=== PATIENT | female | born 1995 | race Caucasian/White ===

== ENCOUNTER 2016-06-08 18:12 | Emergency (ER) | payer OTHER ==
[~2016-06-08] VITALS: Ht 160 cm; Wt 110.0 kg
[~2016-06-08 18:12] MED LIST: MTR600X PO; PRENTAB26 PO
[2016-06-08 18:23] VITALS: TEMP 36.8; Ht 160 cm; Wt 110.0 kg
[2016-06-08 20:55] VITALS: BP 120/82; PULSE 85; O2SAT 97
--- NOTE | 2016-06-09 00:28 | EMERGENCY ROOM VISIT NOTE ---
History First contact with patient: 19:16 Chief Complaint: OTHER COMPLAINT Stated Complaint: PERIOD 2 WKS LATE,INTENSE CRAMPS History of Present Illness The patient is a 20 year old female who presents to the Emergency Room with complaints of "pretty intense pelvic cramping". The patient reports that she has had the symptoms for the past 48 hours. The patient reports that she is 2 weeks late with her menstruation. OB history is . She reports that with her last urgency, her urine was negative. She required a quantitative beta hCG to confirm . She reports that her symptoms are very similar to her prior . She denies any urinary symptoms, constipation or diarrhea. The patient reports that the pain is colicky in nature, lasting a few seconds. She will get this crampy sensation 3-4 times an hour. She has not noticed any vaginal bleeding. She has had thick mucous drainage. She denies any concerns for STI. The patient rates her discomfort a 4 out of 10. The pain does not radiate into the back. Review of Systems 10 system review was performed and was negative except for pertinent positives and negatives as indicated in history of present illness Past Medical/Surgical History Medical Problems: (1) ASTHMA, UNSPECIFIED, W (ACUTE) EXACERBATION (2) Decreased movement (3) DEPRESSIVE DISORDER NEC (4) HISTORY OF TOBACCO USE (5) Post-dates Family History FH: cancer FH: diabetes mellitus FH: heart disease FH: hypertension No pertinent family history Social History Smoking Status: Current Every Day Smoker Alcohol Use: none Marital Status: single Housing Status: other Occupation Status: employed, student Current/Historical Medications No Active Prescriptions or Reported Meds Allergies Coded Allergies: Lamotrigine (Verified Allergy, Mild, RASH, 06/08/16) Physical Exam Vital Signs Date Time Temp Pulse Resp B/P Pulse Ox O2 Delivery O2 Flow Rate FiO2 06/08/16 20:55 85 20 120/82 97 06/08/16 18:23 36.8 81 18 120/79 99 Room Air Physical Exam CONSTITUTIONAL: Healthy and well nourished. Alert and oriented X 3 with positive affect. She does not appear in any acute distress. HEENT: Normocephalic, atraumatic. Pupils equal, round and reactive. NECK: Full active range of motion without discomfort. RESPIRATORY: Clear to auscultation bilaterally with no wheezing, crackles, rhonchi or stridor. CARDIOVASCULAR: Regular rate and rhythm with no murmurs, rubs or gallops. GASTROINTESTINAL: Bowel sounds present in all quadrants. She has minimal suprapubic tenderness to palpation. Negative McBurney's point tenderness. Negative CVA tenderness. Negative Rovsing sign. Negative psoas/obturator sign. Negative heel tap. MUSCULOSKELETAL: Full range of motion of all joints without discomfort. INTEGUMENTARY: No rash or other significant dermatologic conditions noted. NEUROLOGIC: No focal neurologic deficits noted. Medical Decision & Procedures Laboratory Results Test 06/08/16 19:38 Human Chorionic Gonadotropin, Quant < 1 mIU/mL Quantitative beta hCG is undetectable ED Course Patient history and physical exam were performed. Nurse's notes were reviewed. Cause of the patient's prior history of false-negative urine test, a quantitative beta hCG was ordered and was undetectable. I expressed my concern for other intrapelvic etiologies. The patient reported that she needed to leave, and refused additional labwork or pelvic ultrasound. The patient was instructed to follow-up with her MANAGER TELEMETRY or family doctor for recheck in the next 2-3 days if symptoms persist. She is welcome to return to the emergency department for further workup as well. She was encouraged to alternate ibuprofen and Tylenol as needed for pain. The patient voiced understanding of all discharge instructions, and rated her pain a 2 out of 10 at the time of discharge. Medical Decision Patient presented to the emergency department with complaint of pelvic cramping. She is also late with menses. Her quantitative beta hCG is less than 1, therefore the patient is not at this time. Other differentials considered included ovarian cyst, torsion, PID, vaginitis, dysmenorrhea, abscess and GI etiology. I do not suspect appendicitis or diverticulitis. The patient refused any further workup as she needed to leave. Impression Primary Impression: Pelvic pain Departure Information Prescriptions No Active Prescriptions or Reported Meds Referrals No Doctor, Assigned (PCP) Patient Instructions A Signature Page, My [facility] [place]
== END 2016-06-08 20:56 | disposition home or self-care (01) ==
LOC: C.EDB 18:13 → C.EDD 20:56
DX: R10.2 Pelvic and perineal pain (principal); J45.901 Unspecified asthma with (acute) exacerbation; F32.9 Major depressive disorder, single episode, unspecified; F17.210 Nicotine dependence, cigarettes, uncomplicated; Z83.3 Family history of diabetes mellitus; Z82.49 Family history of ischemic heart disease and other diseases of the circulatory system

== ENCOUNTER 2021-05-18 06:27 | Inpatient (IN) ==
[2021-05-18] MEDS ORDERED: OXYTOCIN 30 UNITS/500 ML BAG IV PRN ×3 (07:42→16:14)
[2021-05-18 08:12] LABS: Hematocrit (blood only) 37.3 % (37-47); Hemoglobin 12.8 g/dL (12.0-16.0); Mean Corpuscular Hemoglobin 31.6 pg (25-34); Mean Corpuscular Hgb Conc 34.3 g/dL (32-36); Mean Corpuscular Volume 92.1 fL (80-100); Mean Platelet Volume 10.8 fL (7.4-10.4); Platelet Count 204 K/uL (130-400); RDW Coefficient of Variation 13.8 % (11.5-14.5); RDW Standard Deviation 46.4 fL (36.4-46.3); Red Blood Count 4.05 M/uL (4.2-5.4); White Blood Count 12.64 K/uL (4.8-10.8)
--- NOTE | 2021-05-18 09:53 | History & Physical Report ---
Date of Service May 18, 2021 Assessment & Plan (1) Post-dates : (2) Spontaneous rupture of amniotic membranes: Plan: 25 yo ith uncertain dates (40-42 wks) presenting with SROM with no contractions VSS Afebrile, see HPI FHR reassuring GBS negative Plan to admit monitor, labs, UDS, oxytocin augmentation and anticipate (3) Uncertain dates, antepartum: (4) Late care: Admission and Anticipated Discharge Date Admission Date: May 18, 2021 History of Present Illness Primary Care Provider: NO PCP 25 yo female presenting with LOF at 5 am and confirmed by [facility]. She transferred care from [facility] to [facility] at 30 wks. Poor historian and her dates are not certain. 42 weeks by 2nd trimester US, 15-16 wks and LMP of 3 ( done at [facility]) and 40 wks by 3rd trimester US here at [facility].( She told her LMP as 08/11) Mild irregular back pain No ctxs/ VB +FM's Her has been complicated by 1) Late care and transfer of care with uncertain dates 2) Class III obesity 3) Depression, BPD, was on Lamictal and stopped 4) h/o macrosomic baby in 2017, 9 lb 13 oz 5) H/O Marijuana use per records, denies Allergies Allergy/AdvReac Type Severity Reaction Status Date / Time lamotrigine Allergy Mild RASH Verified 05/18/21 07:09 Home Medications Medication Instructions Recorded Confirmed Type prenat.vits,bossman,[id number] 1 tab PO QAM 09/26/20 05/18/21 History ferrous sulfate 325 mg (65 mg 325 mg PO DAILY 05/12/21 05/18/21 History iron) tablet (iron) Patient History Medical History Injury of left little finger No pertinent past medical history Surgical History No pertinent past surgical history Social History (Updated 05/12/21 @ 17:50 by Constanza Cavazos, MARTÍNEZ) Smoking Status: Former smoker Hx Alcohol Use: No Hx Substance Use: No Preferred Language: Yakut Communication Ability: Effective Rent And Miscellaneous Remittance Clerk Required: No Beliefs That Will Affect Care: None marital status: Single Current Living Situation: Significant Other current occupational status: unemployed Feels Safe at Home: Yes OB History FT in 2017, 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 h/o STD, no chlam/ GC/ HSV Review of Systems as per Subjective / HPI Physical Exam Constitutional: well developed, well nourished and + obese NAD Gastrointestinal (Abdomen): normal bowel sounds, soft, nontender, no hepatosplenomegaly (gravid) Inspection/Auscultation: abdomen normal to inspection and + abdomen distended (Gravid) Genitourinary: normal external appearance OB Exam Abdomen: + vertex Manual OB Exam: + cervical dilation 5 cm, + cervical effacement 30% and + station high OB Exam Monitor Tracing: + external uterine monitor used and + category I [facility] + Results & Data ([place]) Vital Signs (Past 12 Hours) Vital Signs Temp Pulse Resp BP 05/18/21 07:15 20 05/18/21 06:45 37.0 C 18 05/18/21 06:37 95 H 138/81 Laboratory Results Lab Results 05/18/21 05/18/21 05/18/21 Range/Units 07:47 07:53 08:00 WBC (4.8-10.8) K/uL RBC (4.2-5.4) M/uL Hgb (12.0-16.0) g/dL Hct (37-47) % MCV (80-100) fL MCH (25-34) pg MCHC (32-36) g/dL RDW Std Deviation (36.4-46.3) fL RDW Coeff of [place] (11.5-14.5) % Plt Count (130-400) K/uL MPV (7.4-10.4) fL Amniotic Protein POS SARS-CoV-2, RNA, NAAT NEGATIVE (NEGATIVE) Blood Type A Positive Antibody Screen NEGATIVE Draw and Hold Cancelled 05/18/21 Range/Units 08:00 WBC 12.64 H (4.8-10.8) K/uL RBC 4.05 L (4.2-5.4) M/uL Hgb 12.8 (12.0-16.0) g/dL Hct 37.3 (37-47) % MCV 92.1 (80-100) fL MCH 31.6 (25-34) pg MCHC 34.3 (32-36) g/dL RDW Std Deviation 46.4 H (36.4-46.3) fL RDW Coeff of [place] 13.8 (11.5-14.5) % Plt Count 204 (130-400) K/uL MPV 10.8 H (7.4-10.4) fL Amniotic Protein SARS-CoV-2, RNA, NAAT (NEGATIVE) Blood Type Antibody Screen Draw and Hold Code Status & VTE Plan VTE Prophylaxis Plan VTE Prophylaxis will be ordered: No
[2021-05-18] MEDS: LACTATED RINGER'S 1,000 ML IV PRN ×2 (10:55→12:41)
[2021-05-18 11:27] LABS: Amphetamines+Metham, Urine Neg (Neg); Barbiturates, Urine Neg (Neg); Benzodiazepine, Urine Neg (Neg); Cocaine, Urine Neg (Neg); MDMA (Ecstacy), Urine Neg (Neg); Methadone, Urine Neg (Neg); Opiate, Urine Neg (Neg); Phencyclidine, Urine Neg (Neg)
[2021-05-18] MEDS ORDERED: SODIUM CHLORIDE 0.9% INJ 10 ML VIAL ONE (11:54)
[2021-05-18] MEDS ORDERED: NALBUPHINE HCL INJ 10 MG/ML AMP IV PRN (11:54)
[2021-05-18] MEDS ORDERED: diphenhydrAMINE 50 MG/ML VIAL IV PRN (11:54)
[2021-05-18] MEDS ORDERED: ONDANSETRON INJ 2 MG/ML 2 ML VIAL IV PRN (11:54)
[2021-05-18] MEDS ORDERED: ePHEDrine sulfate 50 MG/ML AMP IV PRN (11:54)
[2021-05-18] MEDS ORDERED: NALOXONE HCL 1 MG in SODIUM CHLORIDE 0.9% 1000ML 1,000 ML IV PRN (11:54)
[2021-05-18] MEDS ORDERED: fentaNYL citrate 100 MCG/2 ML VIAL ONE (11:54)
[2021-05-18] MEDS ORDERED: fentaNYL 2MCG/ML ROPIVACAINE 1.25MG/ML 100 ML BAG EPI PRN (11:54)
[2021-05-18] MEDS ORDERED: ePHEDrine sulfate 50 MG/ML AMP ONE (11:54)
[2021-05-18] MEDS ORDERED: BUPIVACAINE 0.25% 30 ML VIAL ONE (11:54)
[2021-05-18] MEDS ORDERED: NALOXONE HCL 0.4 MG/1 ML VIAL/CARP IV PRN (11:54)
[2021-05-18] MEDS ORDERED: fentaNYL 2MCG/ML ROPIVACAINE 1.25MG/ML 100 ML BAG EPI ONE (11:55)
--- NOTE | 2021-05-18 11:55 | Anesthesiology Consultation ---
Date of Service May 18, 2021 Assessment & Plan (1) Encounter for pre-operative examination: Chart Review Chart Review: Patient NOT seen in Pre Admission Testing and Acceptable Risk for Labor Epidural Consults Requested none History Height/Weight Height: 5 ft 3 in Weight: 118.841 kg Allergies Allergy/AdvReac Type Severity Reaction Status Date / Time lamotrigine Allergy Mild RASH Verified 05/18/21 07:09 Medications Home Medications Medication Instructions Recorded Confirmed Last Taken prenat.vits,bossman,nwf-[id number] 1 tab PO QAM 09/26/20 05/18/21 05/17/21 ferrous sulfate 325 mg (65 mg 325 mg PO DAILY 05/12/21 05/18/21 05/17/21 iron) tablet (iron) Active Medications Generic Name Dose Route Start Last Admin Trade Name Freq PRN Reason Stop Dose Admin Lactated Ringer's 1,000 mls @ 150 mls/hr 05/18/21 07:42 05/18/21 11:44 Lr IV 05/20/21 07:41 999 mls/hr .Q6H40M PRN Infusion L&D Protocol Protocol Oxytocin 30 units in 500 mls @ 4 mls/hr 05/18/21 07:44 05/18/21 11:30 Pitocin IV 05/20/21 07:43 0.24 units/hr .Q24H PRN 4 mls/hr Labor Induction/Augmentation Titration Protocol 0.24 UNITS/HR Past Medical History Medical History (Updated 05/18/21 @ 11:55 by Deepak Corona MD) Encounter for pre-operative examination Injury of left little finger No pertinent past medical history Exercise / Class Metabolic Activity II 4-5 Yardwork/Stairs/Walk up hill Past Surgical History Surgical History No pertinent past surgical history Past Anesthesia History No Hx of Anesthesia Complications and No Family Hx of Anesthesia Complications History of PONV No Hx of PONV and No Hx of Motion Sickness Social History Smoking Status: Former smoker Hx Alcohol Use: No Hx Substance Use: No substance use type: does not use Physical Exam Vital Signs Last Vital Signs Temp 36.8 C 05/18/21 10:52 Pulse 69 05/18/21 12:13 Resp 20 05/18/21 11:30 BP 147/89 H 05/18/21 12:16 Pulse Ox 96 05/18/21 12:13 Testing Laboratory Results 05/18/21 08:00 Blood Type A Positive 05/18/21 08:00 Antibody Screen NEGATIVE 05/18/21 08:00
--- NOTE | 2021-05-18 14:47 | Obstetrical Progress Note ---
Date of Service May 18, 2021 Assessment & Plan Admission and Anticipated Discharge Date Admission Date: May 18, 2021 Subjective Received epidural and comfortable. Pitocin was started per protocol. heart rate category 1, Vaginal exam, cervix 6 to 7 cm, 70% effaced, bulging bag, head at -2 station but engaged. AROM, clear fluid was obtained. Continue to monitor closely and anticipate . Results & Data ([facility]) Vital Signs (Past 12 Hours) Vital Signs Temp Pulse Resp BP Pulse Ox 05/18/21 14:43 88 98 05/18/21 14:38 84 99 05/18/21 14:33 72 99 05/18/21 14:32 76 133/62 05/18/21 14:28 80 97 05/18/21 14:23 71 98 05/18/21 14:18 74 98 05/18/21 14:17 75 115/57 L 05/18/21 14:13 74 98 05/18/21 14:08 82 97 05/18/21 14:03 77 98 05/18/21 14:02 76 117/69 05/18/21 13:58 73 97 05/18/21 13:53 82 98 05/18/21 13:48 78 98 05/18/21 13:46 92 H 109/59 L 05/18/21 13:43 80 98 05/18/21 13:38 86 98 05/18/21 13:33 83 111/59 L 99 05/18/21 13:30 18 05/18/21 13:28 78 97 05/18/21 13:23 96 H 98 05/18/21 13:18 89 109/59 L 98 05/18/21 13:15 18 05/18/21 13:13 85 96 05/18/21 13:08 87 97 05/18/21 13:03 83 18 98 05/18/21 13:02 96 H 106/49 L 05/18/21 12:58 94 H 98 05/18/21 12:53 100 H 98 05/18/21 12:48 91 H 98 05/18/21 12:47 85 116/56 L 05/18/21 12:43 90 98 05/18/21 12:38 80 98 05/18/21 12:33 75 99 05/18/21 12:30 90 18 103/53 L 05/18/21 12:28 80 99 05/18/21 12:27 90 112/56 L 05/18/21 12:24 87 121/58 L 05/18/21 12:23 78 98 05/18/21 12:21 77 124/65 05/18/21 12:19 71 131/63 05/18/21 12:18 72 97 05/18/21 12:16 89 147/89 H 05/18/21 12:13 69 153/85 H 96 05/18/21 12:08 89 97 05/18/21 12:06 76 165/90 H 05/18/21 12:03 90 99 05/18/21 11:40 18 05/18/21 11:30 20 05/18/21 10:52 36.8 C 89 18 120/78 05/18/21 10:40 20 05/18/21 08:30 20 05/18/21 07:15 20 05/18/21 06:45 37.0 C 18 05/18/21 06:37 95 H 138/81
[2021-05-18] MEDS ORDERED: miSOPROStoL 200 MCG TAB ONE (16:12)
[2021-05-18] MEDS ORDERED: miSOPROStoL 200 MCG TAB PR ONE (16:14)
[2021-05-18] MEDS ORDERED: HYDROCORTISONE ACETATE 25 MG SUPP PR PRN (16:14)
[2021-05-18] MEDS ORDERED: SUPERCREAM 0.870% 15 GM JAR EXT PRN (16:14)
[2021-05-18] MEDS ORDERED: ACETAMINOPHEN 325 MG TAB PO PRN (16:14)
[2021-05-18] MEDS ORDERED: MEASLES, MUMPS & RUBELLA VIRUS VIAL SQ ONE (16:14)
[2021-05-18] MEDS ORDERED: DIPHTHERIA/TETANUS/PERTUSSIS 0.5 ML SYR/VIAL IM ONE (16:14)
[2021-05-18] MEDS ORDERED: bisacodyL 10 MG SUPP PR PRN (16:14)
[2021-05-18] MEDS ORDERED: oxyCODONE/ACETAMINOPHEN 5mg/325mg TAB PO PRN (16:14)
[2021-05-18] MEDS ORDERED: BENZOCAINE 20% AER SPR 82.5 GM CAN EXT PRN (16:14)
--- NOTE | 2021-05-18 16:19 | Delivery Summary ---
Vaginal Delivery Summary Date of Service May 18, 2021 Vaginal Delivery Summary Patient was found to be fully dilated and desire to push she pushed. She pushed through only 2 contractions and delivered the head without difficulty. Shoulders were delivered with minimal traction, baby was handed off to the mother, where mouth and nose were suctioned and cord was clamped x2 and cut at 1 minute delay. Baby was vigorously moving and crying at that point. Vagina and perineum were checked for lacerations. There was a first-degree clitoral laceration left of the urethra. A rubber catheter were placed into the urethra to aid during repair. This laceration was repaired with 3-0 Vicryl on SH needle in a continuous fashion and excellent hemostasis was achieved. Rest of the vagina and perineum were intact. Placenta was found to be in the vagina, delivered spontaneously as intact and complete. Uterus was explored and found to be empty and cleaned of all clots and debris's. Mom and baby tolerated procedure well, sponge needle instrument count was correct x2. There was a viable male , delivered at 1556 PM, Apgars were 7/8 and weight is pending. No complications happened and I was present during whole procedure.
--- NOTE | 2021-05-18 16:51 | Anesthesia Procedure Note ---
Date of Service May 18, 2021 Anesthesia Post Epidural Note Vital Signs Vital Signs: Temp Pulse Resp BP Pulse Ox 37.2 C 67 18 121/57 L 97 05/18/21 14:30 05/18/21 16:46 05/18/21 15:30 05/18/21 16:46 05/18/21 15:58 Notes Mental Status: alert / awake / arousable and participated in evaluation Patient Amnestic to Procedure: No Nausea / Vomiting: adequately controlled Pain: adequately controlled Airway Patency, RR, SpO2: stable & adequate BP & HR: stable & adequate Hydration State: stable & adequate Neuraxial Anesthesia: was administered and sensory block is resolving Anesthetic Complications: no major complications apparent and Pt Satisfied with anesthetic care Epidural: Removed without complications and With tip intact
[2021-05-18] MEDS: DOCUSATE SODIUM 100 MG CAP PO SCH (21:15)
[2021-05-18] MEDS: IBUPROFEN 600 MG TAB PO PRN (23:37)
[2021-05-19] MEDS: IBUPROFEN 600 MG TAB PO PRN ×2 (03:34→08:18)
[2021-05-19] MEDS ORDERED: PRENATAL VITAMIN 1 TAB PO SCH (08:00)
[2021-05-19] MEDS ORDERED: FERROUS SULFATE 325 MG TAB PO SCH (08:00)
[2021-05-19] MEDS: DOCUSATE SODIUM 100 MG CAP PO SCH (08:18)
[2021-05-19 08:42] LABS: Hematocrit (blood only) 32.9 % (37-47); Hemoglobin 11.1 g/dL (12.0-16.0); Mean Corpuscular Hemoglobin 31.1 pg (25-34); Mean Corpuscular Hgb Conc 33.7 g/dL (32-36); Mean Corpuscular Volume 92.2 fL (80-100); Mean Platelet Volume 10.9 fL (7.4-10.4); Platelet Count 165 K/uL (130-400); RDW Coefficient of Variation 13.8 % (11.5-14.5); RDW Standard Deviation 46.3 fL (36.4-46.3); Red Blood Count 3.57 M/uL (4.2-5.4); White Blood Count 12.76 K/uL (4.8-10.8)
[2021-05-19] MEDS ORDERED: CALCIUM CARBONATE 500 MG CHEWABLE TAB PO PRN (09:28)
--- NOTE | 2021-05-19 10:22 | Obstetrical Progress Note ---
Date of Service May 19, 2021 Assessment & Plan (1) Normal course: Day #1 pt doing well wishes to be discharged home Subjective Ambulation: ambulating normally Voiding: no voiding problems Passing Gas:: Yes Diet Tolerance:: regular diet Lochia:: Small Feeding Type:: breast feeding Review of Systems All systems reviewed & are unremarkable except as noted in HPI & below Physical Exam Constitutional WD/WN, vitals as above well developed and well nourished Eyes PERRL, conjunctivae normal, anicteric sclerae Neck trachea midline, no thyromegaly Respiratory normal respiratory effort, lungs clear to auscultation Auscultation: no crackles, no rales and no wheezes Cardiovascular RRR, no murmur, no edema Gastrointestinal (Abdomen) normal bowel sounds, soft, nontender, no hepatosplenomegaly Uterus is below umbilicus Musculoskeletal no cyanosis or clubbing, extremities motor strength 5/5 Skin no rashes, warm and dry Neurologic patellar DTR's 2+ bilat, sensation intact Psychiatric A+Ox3, euthymic affect Genitourinary normal external appearance Results & Data ([facility]) Vital Signs (Past 12 Hours) Vital Signs Temp Pulse Resp BP Pulse Ox 05/19/21 07:55 36.6 C 55 L 18 105/69 97 05/19/21 03:35 36.6 C 64 20 114/73 05/18/21 23:50 37.1 C 73 20 149/90 H
[2021-05-19] MEDS ORDERED: bisacodyL 5 MG TABEC PO SCH (20:00)
[2021-05-20 13:21] LABS: Marijuana Quant, GCMS Urine 27 ng/mL (<5)
== END 2021-05-19 16:43 | disposition home or self-care (01) | DRG 807 ==
LOC: OPB 06:27 → 4S1 06:30 → 4S2 18:30

== ENCOUNTER 2022-08-04 16:01 | Inpatient (IN) ==
[2022-08-04] MEDS ORDERED: LIDOCAINE 1% LOCAL 20 ML VIAL INFIL PRN (16:05)
[2022-08-04] MEDS ORDERED: OXYTOCIN 30 UNITS/500 ML BAG IV PRN ×2 (16:05→17:41)
[2022-08-04 16:32] LABS: Hematocrit (blood only) 37.5 % (37.0-47.0); Hemoglobin 13.4 g/dl (12.0-16.0); Mean Corpuscular Hemoglobin 31.4 pg (25.0-34.0); Mean Corpuscular Hgb Conc 35.7 g/dL (32.0-36.0); Mean Corpuscular Volume 87.8 fL (80.0-100.0); Mean Platelet Volume 10.6 fL (9.4-12.4); Platelet Count 214 K/uL (130-400); RDW Coefficient of Variation 13.3 % (11.5-14.5); RDW Standard Deviation 42.4 fL (36.4-46.3); Red Blood Count 4.27 M/uL (4.20-5.40)
[2022-08-04] MEDS ORDERED: CALCIUM CARBONATE 500 MG CHEWABLE TAB PO PRN (17:12)
[2022-08-04] MEDS: LACTATED RINGER'S 1,000 ML IV PRN ×2 (18:02→22:26)
--- NOTE | 2022-08-04 18:33 | History & Physical Report ---
Date of Service August 04, 2022 Assessment & Plan Admission and Anticipated Discharge Date Admission Date: August 04, 2022 History of Present Illness Chief Complaint: induction of labor for BPP 2/8 Primary Care Provider: TUSHAR PCP 26 F P2002 at 39.2 weeks here from office due to BPP 2/8. She is GBS negative. Allergies Allergy/AdvReac Type Severity Reaction Status Date / Time lamotrigine Allergy Mild RASH Verified 08/04/22 18:22 Home Medications Medication Instructions Recorded Confirmed Type prenat.vits,bossman,[id number] 1 tab PO QAM 09/26/20 08/04/22 History Patient History Medical History Encounter for pre-operative examination Injury of left little finger No pertinent past medical history Surgical History No pertinent past surgical history Social History Smoking Status: Never smoker Tobacco Type: Cigarettes Hx Alcohol Use: No Hx Substance Use: Yes (in the past used thc) Preferred Language: Cymraes Communication Ability: Effective 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 Required: No Beliefs That Will Affect Care: None marital status: Single Current Living Situation: Significant Other current occupational status: unemployed How many Children do You have: 2 Other Information That Helps Us Care for You: No Feels Safe at Home: Yes Safety Concerns: Feels Safe At This Time Assistive Devices: None OB History x2 Review of Systems All systems reviewed & are unremarkable except as noted in HPI & below Physical Exam Constitutional: WD/WN, vitals as above Eyes: PERRL, conjunctivae normal, anicteric sclerae Respiratory: normal respiratory effort, lungs clear to auscultation Cardiovascular: Rate/Rhythm: regular rate and regular rhythm Gastrointestinal (Abdomen): Inspection/Auscultation: abdomen normal to inspection Musculoskeletal: Extremities: extremities normal to inspection Skin: no rashes, warm and dry Neurologic: patellar DTR's 2+ bilat, sensation intact Psychiatric: A+Ox3, euthymic affect Genitourinary: Manual OB Exam: + cervical dilation 3 cm, + cervical effacement 50% and + station -2 OB Exam Monitor Tracing: + external FHT monitor used, + external uterine monitor used, + category I and + normal FHT variability cervix is anterior/soft Results & Data ([facility]) Vital Signs (Past 12 Hours) Vital Signs Temp Pulse Resp BP 08/04/22 16:25 37.5 C 20 08/04/22 16:19 87 121/67 Code Status & VTE Plan VTE Prophylaxis Plan VTE Prophylaxis will be ordered: No
[2022-08-04] MEDS ORDERED: NALOXONE HCL 1 MG in SODIUM CHLORIDE 0.9% 1000ML 1,000 ML IV PRN (19:37)
[2022-08-04] MEDS ORDERED: BUPIVACAINE 0.25% 30 ML VIAL ONE (19:37)
[2022-08-04] MEDS ORDERED: diphenhydrAMINE 50 MG/ML VIAL IV PRN (19:37)
[2022-08-04] MEDS ORDERED: ePHEDrine sulfate 50 MG/ML AMP IV PRN (19:37)
[2022-08-04] MEDS ORDERED: SODIUM CHLORIDE 0.9% INJ 10 ML VIAL ONE (19:37)
[2022-08-04] MEDS ORDERED: fentaNYL citrate 100 MCG/2 ML VIAL ONE (19:37)
[2022-08-04] MEDS ORDERED: NALBUPHINE HCL INJ 10 MG/ML AMP IV PRN (19:37)
[2022-08-04] MEDS ORDERED: ePHEDrine sulfate 50 MG/ML AMP ONE (19:37)
[2022-08-04] MEDS ORDERED: fentaNYL 2MCG/ML ROPIVACAINE 1.25MG/ML 100 ML BAG EPI PRN (19:37)
[2022-08-04] MEDS ORDERED: LIDOCAINE 2%/EPINEPHRINE 1:200,000 20 ML SDV ONE (19:37)
[2022-08-04] MEDS ORDERED: NALOXONE HCL 0.4 MG/1 ML VIAL/CARP IV PRN (19:37)
--- NOTE | 2022-08-04 19:37 | Anesthesiology Consultation ---
Date of Service August 04, 2022 Assessment & Plan (1) Encounter for pre-operative examination: Chart Review Chart Review: Patient NOT seen in Pre Admission Testing and Acceptable Risk for Labor Epidural Consults Requested none History Height/Weight Height: 5 ft 4 in Weight: 127.006 kg Allergies Allergy/AdvReac Type Severity Reaction Status Date / Time lamotrigine Allergy Mild RASH Verified 08/04/22 18:22 Medications Home Medications Medication Instructions Recorded Confirmed Last Taken prenat.vits,bossman,[id number] 1 tab PO QAM 09/26/20 08/04/22 05/17/21 Active Medications Generic Name Dose Route Start Last Admin Trade Name Freq PRN Reason Stop Dose Admin Calcium Carbonate 1,500 mg 08/04/22 17:12 08/04/22 17:28 Calcium Carbonate 500 Mg Chewable Tab PO 09/03/22 17:11 1,500 mg Q2R PRN Administration Indigestion Lactated Ringer's 1,000 mls @ 125 mls/hr 08/04/22 16:05 08/04/22 18:02 Lr IV 08/06/22 16:04 125 mls/hr .Q8H PRN Administration L&D Protocol Protocol Oxytocin 30 units in 500 mls @ 5 mls/hr 08/04/22 17:41 08/04/22 19:05 Pitocin IV 08/06/22 17:40 0.3 units/hr .Q24H PRN 5 mls/hr Labor Induction/Augmentation Titration Protocol 0.3 UNITS/HR Past Medical History Medical History Encounter for pre-operative examination Injury of left little finger No pertinent past medical history Past Surgical History Surgical History No pertinent past surgical history Social History Smoking Status: Never smoker Hx Alcohol Use: No Hx Substance Use: Yes (in the past used thc) substance use type: does not use Physical Exam Vital Signs Last Vital Signs Temp 98.1 F 08/04/22 19:01 Pulse 74 08/04/22 19:01 Resp 18 08/04/22 19:01 BP 113/62 08/04/22 19:01 Testing Laboratory Results 08/04/22 16:19 Blood Type A Positive 08/04/22 16:19 Antibody Screen NEGATIVE 08/04/22 16:19
[2022-08-04] MEDS ORDERED: fentaNYL 2MCG/ML ROPIVACAINE 1.25MG/ML 100 ML BAG EPI ONE (19:38)
--- NOTE | 2022-08-04 20:33 | Labor Progress Brief Note ---
Date of Service August 04, 2022 Assessment & Plan Admission and Anticipated Discharge Date Admission Date: August 04, 2022 Physical Exam Genitourinary: Manual OB Exam: + cervical dilation 4 cm, + cervical effacement 80% and + station -2 OB Exam Monitor Tracing: + external FHT monitor used, + scalp electrode used, + category I and + normal FHT variability AROM with Amni-hook clear fluid. internal scalp lead applied Results & Data ([facility]) Vital Signs (Past 12 Hours) Vital Signs Temp Pulse Resp BP Pulse Ox 08/04/22 16:25 37.5 C 20 08/04/22 20:29 97 08/04/22 20:29 86 08/04/22 20:27 36.8 C 08/04/22 20:24 99 08/04/22 20:24 96 H 08/04/22 20:19 98 08/04/22 20:19 81 08/04/22 20:16 83 08/04/22 20:16 110/59 L 08/04/22 20:14 97 08/04/22 20:14 74 08/04/22 20:11 74 08/04/22 20:11 106/56 L 08/04/22 20:09 97 08/04/22 20:09 80 08/04/22 20:06 118 H 08/04/22 20:06 102/53 L 08/04/22 20:04 98 08/04/22 20:04 83 08/04/22 20:01 90 08/04/22 20:01 105/53 L 08/04/22 19:59 98 08/04/22 19:59 78 08/04/22 19:59 86 08/04/22 19:59 112/57 L 08/04/22 19:56 75 08/04/22 19:56 108/57 L 08/04/22 19:54 98 08/04/22 19:54 93 H 08/04/22 19:53 78 08/04/22 19:53 130/60 08/04/22 19:49 97 08/04/22 19:49 91 H 08/04/22 19:44 98 08/04/22 19:44 91 H 08/04/22 19:01 18 08/04/22 19:01 36.7 C 18 08/04/22 19:01 74 08/04/22 19:01 113/62 08/04/22 16:19 87 121/67
--- NOTE | 2022-08-05 00:31 | Delivery Summary ---
Vaginal Delivery Summary Date of Service August 05, 2022 Vaginal Delivery Summary Delivery Note live female KAREN with nuchal cord x1 reduced at delivery of head over intact perineum with delayed cord clamping. Apgars 8/9 weight pending. Cord blood obtained followed by spontaneous delivery of intact placenta with 3VC. No tears. EBL 100 ml. Final sponge and instrument count are correct. Mom and baby stable. Cord
[2022-08-05] MEDS ORDERED: OXYTOCIN 30 UNITS/500 ML BAG IV PRN (01:09)
[2022-08-05] MEDS ORDERED: ACETAMINOPHEN 325 MG TAB PO PRN (01:09)
[2022-08-05] MEDS ORDERED: HYDROCORTISONE ACETATE 25 MG SUPP PR PRN (01:09)
[2022-08-05] MEDS ORDERED: DIPHTHERIA/TETANUS/PERTUSSIS 0.5mL SYR/VIAL (Age 7+yrs) IM ONE (01:09)
[2022-08-05] MEDS ORDERED: bisacodyL 10 MG SUPP PR PRN (01:09)
[2022-08-05] MEDS ORDERED: BENZOCAINE 20% AER SPR 82.5 GM CAN EXT PRN (01:09)
[2022-08-05] MEDS ORDERED: NON-FORMULARY MEDICATION (Prenat.Vits,Cal,Min-Iron-Folic Tablet) PO SCH (09:00)
--- NOTE | 2022-08-05 09:09 | Anesthesia Procedure Note ---
Date of Service August 05, 2022 Anesthesia Post Epidural Note Vital Signs Vital Signs: Temp Pulse Resp BP Pulse Ox 37.0 C 93 H 18 105/57 L 93 08/05/22 02:45 08/05/22 02:45 08/05/22 02:45 08/05/22 02:45 08/05/22 00:20 Notes Mental Status: alert / awake / arousable and participated in evaluation Patient Amnestic to Procedure: No Nausea / Vomiting: adequately controlled Pain: adequately controlled Airway Patency, RR, SpO2: stable & adequate BP & HR: stable & adequate Hydration State: stable & adequate Neuraxial Anesthesia: was administered and sensory block resolved Anesthetic Complications: no major complications apparent and Pt Satisfied with anesthetic care Epidural: Removed without complications and With tip intact
[2022-08-05] MEDS: FERROUS SULFATE 325 MG TAB PO SCH (09:32)
[2022-08-05] MEDS: DOCUSATE SODIUM 100 MG CAP PO SCH ×2 (09:33→21:00)
[2022-08-05] MEDS: PRENATAL VITAMIN 1 TAB PO SCH (09:33)
[2022-08-05] MEDS: IBUPROFEN 600 MG TAB PO PRN ×2 (09:34→18:30)
[2022-08-06 06:39] LABS: Hematocrit (blood only) 35.2 % (37.0-47.0); Mean Corpuscular Hemoglobin 30.7 pg (25.0-34.0); Mean Corpuscular Hgb Conc 34.1 g/dL (32.0-36.0); Platelet Count 159 K/uL (130-400); RDW Coefficient of Variation 13.5 % (11.5-14.5); Red Blood Count 3.91 M/uL (4.20-5.40); White Blood Count 9.61 K/ul (4.8-10.8)
[2022-08-06] MEDS: PRENATAL VITAMIN 1 TAB PO SCH (09:18)
[2022-08-06] MEDS: DOCUSATE SODIUM 100 MG CAP PO SCH (09:18)
[2022-08-06] MEDS: FERROUS SULFATE 325 MG TAB PO SCH (09:18)
--- NOTE | 2022-08-06 10:37 | Obstetrical Progress Note ---
Date of Service August 06, 2022 Assessment & Plan (1) Normal course: PPD #1 pt doing well pt wishes to be discharged home today Results & Data ([facility]) Vital Signs (Past 12 Hours) Vital Signs Temp Pulse Resp BP Pulse Ox O2 Del Method 08/06/22 07:30 36.6 C 68 20 145/75 H 08/05/22 22:57 36.8 C 56 L 18 122/84 97 Room Air
[2022-08-06] MEDS ORDERED: bisacodyL 5 MG TABEC PO SCH (20:00)
== END 2022-08-06 13:30 | disposition home or self-care (01) | DRG 807 ==
LOC: 4S1 16:01 → 4E1 08-05 02:46

== ENCOUNTER 2024-04-15 07:57 | Inpatient (IN) ==
--- OUTSIDE RECORDS SUMMARY | 2024-04-15 09:00 | External Medical Summary | Summary of Care ---
Author Name Unknown Organization [facility] Address [address] [facility] [place] [address] Phone [phone] Care Team Providers Care Privacy Specialist Name Role Phone Mimi Nava Primary Care Provider Reason for Visit * Reason Comments Non Stress Test Encounter Details Date Type Department Care Team (Late st Contact Info) Description 04/10/2024 10:00 AM EST Office Visit Gynecology/Obstetric s [facility] [address] [facility] [place] [address] Mimi Nava CRNP [address] [place] [address] Jj, Non Stress Tests [facility] [address] [place] [address] High-risk in third trimester*; Obesity in , antepartum; Maternal varicella, non-immune Allergies Active Allergy Reactions Criticality Noted Date Comments Lamotrigine 07/13/2012 Rash and throat swelling documented as of this encounter (statuses as of 04/10/2024) Medications 28-0.8 MG Oral Tablet Take by mouth. Active documented as of this encounter (statuses as of 04/10/2024) Active Problems Problem Noted Date Diagnosed Date Food insecurity 11/06/2023 Overview: Per [facility] Protocol Maternal varicella, non-immune 10/12/2023 High-risk 10/10/2023 Obesity in , antepartum 10/10/2023 Overview (11/06/2023): Class 3 Early GTT (normal), baseline preE labs, growth q4 wks, weekly NSTs 34 wks, deliver by LYN Attention deficit disorder without hyperactivity 02/04/2008 Epistaxis Estimated Date of Delivery Comme nts Yes 04/20/2024 Based on last me nstrual period of 07/15/2023 documented as of this encounter (statuses as of 04/10/2024) Resolved Problems Problem Noted Date Diagnosed Date Resolved Date Health counseling 04/26/2022 09/19/2022 Overview (09/19/2022): Problem Action Taken Date entered Entered by Date resolved Need for baby supplies Breast pump form sent 06/17/2022 Aditi Lee RN 06/17/2022 Problem Action Taken Date entered Entered by Date resolved Current needs or questions Discussed NST Patient denies having any current needs or questions 06/29/2022 Kandice Rodriguez RN 06/29/2022 Problem Action Taken Date entered Entered by Date resolved Current needs or questions Patient denies having any current needs or questions 07/14/2022 Aditi Lee RN 07/14/22 Problem Action Taken Date entered Entered by Date resolved Current needs or questions Patient denies having any current needs or questions 07/15/2022 Aditi Lee RN 07/15/2022 Problem Action Taken Date entered Entered by Date resolved Current needs or questions Patient denies having any current needs or questions 07/27/2022 Aditi Lee RN 07/27/2022 Problem Action Taken Date entered Entered by Date resolved PP education given 09/19/2022 Aditi Lee RN 09/19/2022 Encounter for supervision of other normal , third trimester 01/20/2022 09/19/2022 Supervision of other normal 03/10/2021 08/05/2021 Overview (03/25/2021): CBC at 32w showing low foliate and B12, recommended supplementation History of delivery of macrosomal 03/10/2021 09/19/2022 Obesity in , antepartum 03/10/2021 07/27/2022 Overview (03/10/2021): Class II obesity (BMI 35-39.9) -Weight gain 11-20lbs -Nutrition consult -MFM anatomy scan, growth scan q4 weeks -Early GDM screening Depression complicating , antepartum 03/10/20 21 09/19/2022 Overview (03/10/2021): No meds Insufficient care 03/10/2021 0 09/19/2022 Overview (04/13/2021): Transferring care. Prior records received 04/13/2021 (35w) and sent to [facility]ann[facility]11/25/20: A+ bloodtype, negative antibody, hct-40.1, hgb- 13.7, pap WNL, rubella immune, RPR nonreactive, Hep BsAg nonreactive, Hep C ab nonreactive, chlamydia negative, gonorrhea negative Obesity, Class III, BMI 40-4 9.9 (morbid obesity) 02/27/2017 09/19/2022 Overview (01/20/2022): Early glucola Baseline preeclamptic labs Growth u/s every 4wk after 20wks Weekly NST after 34 weeks Consider anesthesia consult Delivery by EDC Encounter for supervision of normal first in second trimester 02/26/2015 09/15/2015 Overview (03/24/2021): Transfer[place] care at 13wks from [facility] [place] Release of record signed. 01/06/15:H/H=14.4/41.8, bxe=817, Hep B negative, Rubella immune, A+ bloodtype, negative antibodies, urine culture negative, chlamydia/gonnorhea negative, RPR nonreactive Lack of housing Care Management Oil Burner Journeyman 02/26/15 Hetal Skinner RN Unplanned 1st Offer Nurse Family Partnership 02/26/15 Hetal Skinner RN Nutrition Provided due date letter for pt to attend [facility] 02/26/2015 Hetal Skinner RN Problem Action Taken Date entered Entered by Date resolved Current needs or questions Patient denies having any current needs or questions 03/26/2015 Hetal Skinner RN Problem Action Taken Date entered Entered by Date resolved Nurse family partnership Pt seeing NFP- They have discussed with her the [place] project. Having a boy and starting to get things ready for this. 04/20/2015 Kandice Rodriguez RN Problem Action Taken Date entered Entered by Date resolved Current needs or questions Patient denies having any current needs or questions 05/18/2015 Hetal Skinner RN 05/18/15 Problem Action Taken Date entered Entered by Date resolved Current needs or questions Patient denies having any current needs or questions 06/08/2015 Kandice Rodriguez RN Problem Action Taken Date entered Entered by Date resolved Current needs or questions Patient denies having any current needs or questions 06/22/2015 Kandice Rodriguez RN Problem Action Taken Date entered Entered by Date resolved Lack of housing Moving into new housing. Will plan to get ready for baby once settled in 06/22/2015 Kandice Rodriguez RN Problem Action Taken Date entered Entered by Date resolved Current needs or questions Patient denies having any current needs or questions. Moving beginning of July. NFP coming in. 07/06/2015 Kandice Rodriguez RN Problem Action Taken Date entered Entered by Date resolved Current needs or questions Patient denies having any current needs or questions 08/11/2015 Kandice Rodriguez RN Problem Action Taken Date entered Entered by Date resolved Current needs or questions Patient denies having any current needs or questions 08/20/2015 Kandice Rodriguez RN Problem Action Taken Date entered Entered by Date resolved Current needs or questions Patient denies having any current needs or questions 08/27/2015 Hetal Skinner RN 08/27/15 Problem Action Taken Date entered Entered by Date resolved Current needs or questions Patient denies having any current needs or questions 08/31/2015 Akanksha Ascencio RN 08/31/15 Problem Action Taken Date entered Entered by Date resolved Induction scheduled 09/07/15 Reviewed induction instructions 09/03/2015 Akanksha Ascencio RN 09/03/15 Problem Action Taken Date entered Entered by Date resolved 32 week readiness page completed Due date letter faxed to [facility] 03/24/2021 Kandice Rodriguez RN 03/24/2021 documented as of this encounter (statuses as of 04/10/2024) Immunizations Name Administration Dates Next Due COVID-19, MRNA-LNP, PF, 30 M CG/0.3 mL, 12 YRS AND ABOVE, IM (PFIZER-Comirnaty) 07/27/2023 PPD 12/21/2022,11/28/2022 Seasonal Influenza Vac., MDV, IM, 0.5 mL (Fluzon e) 02/21/2013 TDAP (age 10 and older)(Boostrix) 06/16/2015 documented as of this encounter Social History Tobacco Use Types Packs/Day Years Used Date Smoking Tobacco: Former Cigarettes 0.3 4 Smokeless Tobacco: Never Alcohol Use Standard Drinks/Week Comments No 0 (1 standard drink = 0.6 oz pur e alcohol) Hunger Vital Sign Answer Date Recorded Within the past 12 months, y ou worried that your food would run out before you got the money to buy more. Often true 11/01/19 24 Within the past 12 months, t he food you bought just didn't last and you didn't have money to get more. Never true 11/01/2023 [place] Depression Scale Answer Date Recorded [place] Depression Scale Total 6 10/10/2023 The thought of harming myself has occurred to me . Never 10/10/2023 Childcare Answer Date Recorded Do you feel overwhelmed with taking care of a child, family member or friend? No 11/01/2023 Does your family need help f inding childcare? (Household - for ages 0-17 years) Not on file 11/01/2023 Clothing Answer Date Recorded Have you been unable to get clothing when it was really needed? No 11/01/2023 Is your family able to get c lothes or diapers when needed? (Household - for ages 0-17 years) Not on file 11/01/2023 Personal Safety Answer Date Recorded Do you feel unsafe or have concerns for your saf ety? No 11/01/2023 Do you have concerns for you r family's safety? (Household - for ages 0-17 years) Not on file 11/01/2023 Utilities Answer Date Recorded Do you have trouble paying y our heating, water, or electric bill? No 11/01/2023 Is your family able to pay t he heat, water, or electric bill? (Household - for ages 0-17 years) Not on file 11/01/2023 Does your family have access to good internet? (Household - for ages 0-17 years) Not on file 11/01/2023 Employment Status Answer Date Recorded Are you unemployed or without regular income? No 11/01/2023 Does the household have a re gular source of income? (Household - for ages 0-17 years) Not on file 11/01/2023 Social Connections Answer Date Recorded How often do you feel lonely or isolated from th ose around you? Never 11/01/2023 Financial Resource Strain Answer Date R ecorded Do you have any trouble payi ng for your medications, or do you think you might in the future? No 11/01/2023 Does your family have troubl e paying for medicine? (Household - for ages 0-17 years) Not on file 11/01/2023 Transportation Needs Answer Date Record ed READ ONLY Do you have troubl e getting a ride to medical visits or work? Never True 11/01/2023 Does your family have a hard time getting a ride to doctors visits? (Household - for ages 0-17 years) Not on file 11/01/2023 Has lack of transportation k ept you from medical appointments, meetings, work, or from getting things needed for daily living? Check all that apply. (Adult - for ages 18 years and over) Not on file 11/01/2023 Do you (or your family) have trouble finding or paying for a ride (transportation)? (Household - for ages 0-17 years) Not on file 11/01/2023 Housing Stability Answer Date Recorded Do you currently live in a s helter or have no steady place to sleep at night? No 11/01/2023 READ ONLY Do you think you a re at risk of becoming homeless? No 11/01/2023 Does your family worry about paying for your home or becoming homeless? (Household - for ages 0-17 years) Not on file 0 11/01/2023 Are you homeless or worried that you might be in the future? (Adult - for ages 18 years and over) Not on file Are you (or your family) zaire eless or worried that you might be in the future? (Household - for ages 0-17 years) Not on file Food Insecurity Answer Date Recorded Do you need food for this week? No 11/01/2023 Are you able to get enough f ood for your family? (Household - for ages 0-17 years) Not on file 11/01/2023 Does your family need food t his week? (Household - for ages 0-17 years) Not on file 11/01/2023 Do you always have enough fo od for your family? (Household - for ages 0-17 years) Not on file 11/01/2023 Estimated Date of Delivery Comme nts Yes 04/20/2024 Based on last me nstrual period of 07/15/2023 Sex and Gender Information Value Date Recorded Sex Assigned at Female 01/20/2022 2:29 PM EDT Legal Sex Female 5:37 AM EST Gender Identity Female 01/20/2022 2:29 PM EDT Sexual Orientation Bisexual 01/20/2022 2: 29 PM EDT documented as of this encounter Last Filed Vital Signs Vital Sign Reading Time Taken Comments Blood Pressure - - Pulse - - Temperature - - Respiratory Rate - - Oxygen Saturation - - Inhaled Oxygen Concentration - - Weight 131.9 kg (290 lb 11.2 oz) 04/10/2024 9:53 AM EST Height - - Body Mass Index 49.9 04/08/2024 4:31 PM EST documented in this encounter Progress Notes * Mimi Nava CRNP - 04/10/2024 10:12 AM EST 38w4d Growth u/s today, appropriate growth, CLAY 14cm. Baby is active. No contractions or bleeding. Pt had asked nurse for cervical check but then left immediately after NST was completed. Has IOL 04/15. ASSESSMENT assessment with Non-stress Test completed on 04/10/2024 at 38.4weeks gestation for indicationof obesity heart baseline: 140 bpm Variability: Moderate Decelerations: absent Accelerations: present Contractions: None NST start time: 1036 NST stop time: 1104 NST strip reviewed, interpreted, and approved by OB provider, DOREEN Garza . NST strip stored in clinic storage file * Maria A So CMA - 04/10/2024 9:53 AM EST 38w4d + contractions Requesting cervical check. States pants are consistently wet. Nitrazine positive in office 04/09/2024. L&D testing negative. documented in this encounter Plan of Treatment Upcoming Encounters Date Type Department Care Team (Late st Contact Info) Description 04/17/2024 10:00 AM EST Office Visit Gynecology/Obstetrics [facility] [address] [place] [id number] Mimi Nava CRNP [address] [place] [address] Becca Gardner Stress Tests [facility] [address] [place] [address] Health Maintenance Due Date Last Done Comments HPV (Gardasil) Vaccine (2 - 3-dose series) 07/29/2013 07/01/2013 (Done elsewhere) Hepatitis B Vaccine (2 of 3 - 3-dose series) 07/29/2013 07/01/2013 (Done elsewhere) Depression Screening 10/18/2016 10/19/2015 COVID-19 Vaccine (2 - season) 2024 07/27/2023, 07/27/2023 Influenza Vaccine (FLU shot) (#1) 2024 02/21/2013 Pap Smear 01/20/2025 01/20/2022 DTap/Tdap Vaccines (2 - Td or Tdap) 06/16/2025 06/16/2015 MENINGOCOCCAL (MENACTRA/MENVEO) Addressed 07/01/2013 (Done elsewhere) Overridden with the intention of not completing the topic Gonorrhea / Chlamydia Screen Discontinued 10/10/2023, 01/20/2022, 08/16/2016, Additional history exists Pneumococcal Vaccine: Pediatrics (0 to 5 Years) and At-Risk Patients (6 to 64 Years) Aged Out No longer eligible based on patient's age to complete this topic documented as of this encounter Medical Devices Not on filedocumented as of this encounter Visit Diagnoses Diagnosis High-risk in third trimester- Primary Obesity in , antepartum Obesity complicating , childbirth, or the puerperium, antepartum condition or complication Maternal varicella, non-immune Supervision of other high-risk documented in this encounter Care Teams Privacy Specialist Relationship Specialty Start Date End Date Mimi Nava CRNP [address] [place] [phone] PCP - General Nurse Practitioner 02/15/24 documented as of this encounter
--- OUTSIDE RECORDS SUMMARY | 2024-04-15 09:01 | External Medical Summary | Summary of Care ---
Author Name Unknown Organization [facility] Address [address] [place] [address] Phone [phone] Care Team Providers Care Tail Trimmer Name Role Phone Mimi Nava Primary Care Provider [phone] Reason for Visit * Reason Comments Return Visit Encounter Details Date Type Department Care Team (Late st Contact Info) Description 04/08/2024 4:00 PM EST Office Visit Gynecology/Obstetric s [facility] [address] [place] [address] Miguel Palmer MD [address] [place] [address] High-risk in third trimester*; Obesity in , antepartum; Maternal varicella, non-immune Allergies Active Allergy Reactions Criticality Noted Date Comments Lamotrigine 07/13/2012 Rash and throat swelling documented as of this encounter (statuses as of 04/08/2024) Medications 28-0.8 MG Oral Tablet Take by mouth. Active documented as of this encounter (statuses as of 04/08/2024) Active Problems Problem Noted Date Diagnosed Date [...] as of this encounter (statuses as of 04/08/2024) Resolved Problems Problem Noted Date Diagnosed Date [...] -Early GDM screening Depression complicating , antepartum 03/10/2009/19/2022 Overview (03/10/2021): No meds Insufficient care 03/10/2021 [...] Overview (03/24/2021): [place] care at 13wks from [facility] [place] Release of record signed. 01/06/15:H/H=14.4/41.8, zuz=303, Hep B negative, Rubella immune, A+ bloodtype, negative antibodies, urine culture negative, chlamydia/gonnorhea negative, RPR nonreactive Lack of housing Care Management Short Order Cook 02/26/15 Hetal Skinner RN Unplanned 1st Offer Nurse Family Partnership 02/26/15 Hetal Skinner RN Nutrition Provided due date letter for pt to attend [place] 02/26/2015 Hetal Skinner RN Problem Action Taken [...] page completed Due date letter faxed to [facility] 03/24/2021 Kandice Rodriguez RN 03/24/2021 documented as of this encounter (statuses as of 04/08/2024) Immunizations Name Administration Dates Next Due COVID-19, [...] money to get more. Never true 11/01/2023 Gary Depression Scale Answer Date Recorded Gary Depression Scale Total 6 10/10/2023 The thought [...] Sign Reading Time Taken Comments Blood Pressure 108/74 04/08/2024 4:31 PM EST Pulse - - Temperature - - Respiratory Rate - - Oxygen Saturation - - Inhaled Oxygen Concentration - - Weight 131.1 kg (289 lb) 04/08/2024 4:31 PM EST Height 162.6 cm (5' 4") 04/08/2024 4:31 PM EST Body Mass Index 49.61 04/08/2024 4:31 PM EST documented in this encounter Progress Notes * Miguel Palmer MD - 04/08/2024 5:10 PM EST Acute visit Pt called with ?[facility] Reports ctxs Pelvic: no gross pooling, thick mucus. +ve Nitrazine FHR ; 140's VE; 1/post Unable to do sono for positioning Pt sent to L&D fo melyal Discussed with yardage control clerk Dr Alvarez documented in this encounter Nursing Notes * Marleny Hoang LPN - 04/08/2024 4:38 PM EST 38w2d ?ROM Started with a constant pain on the drive here. documented in this encounter Plan of Treatment Upcoming Encounters Date Type Department Care Team (Late st Contact Info) Description 04/10/2024 8:45 AM EST [facility] [address] [place] [id number] 04/10/2024 10:00 AM EST Office Visit Gynecology/Obstetrics [facility] [address] [place] [address] Mimi Nava CRNP [address] [place] [phone] Jj, Non Stress Tests [facility] [address] [facility] [place] [address] 04/17/2024 10:00 AM EST Office Visit Gynecology/Obstetrics [facility] [address] [place] [address] Mimi Nava CRNP [address] [place] [address] Jj Non Stress Tests [facility] [address] [place] [address] Health Maintenance Due Date Last Done Comments HPV (Gardasil) Vaccine (2 - 3-dose series) 07/29/2013 07/01/2013 (Done elsewhere) Hepatitis B Vaccine (2 of 3 - 3-dose series) 07/29/2013 07/01/2013 (Done elsewhere) Depression Screening 10/18/2016 10/19/2015 COVID-19 Vaccine (2 - 2023- season) 2024 07/27/2023, 07/27/2023 Influenza Vaccine (FLU [...] high-risk documented in this encounter Care Teams Tail Trimmer Relationship Specialty Start Date End Date Mimi Nava CRNP [address] [place] [address] PCP - General Nurse Practitioner 02/15/24 documented as of this encounter
[2024-04-15] MEDS ORDERED: OXYTOCIN 30 UNITS/NSS 30 UNITS/500 ML BAG IV PRN (09:58)
[2024-04-15] MEDS: miSOPROStoL 50 MCG TAB PO SCH (10:10)
--- NOTE | 2024-04-15 10:32 | Obstetrical Progress Note ---
Date of Service April 15, 2024 Assessment & Plan (1) Obesity affecting in third trimester: Plan: Induction for obesity class III Reviewed PNC FHR; CAT1 Ctx: None VE; 1/post Bedside sono; VT Admission and Anticipated Discharge Date Admission Date: April 15, 2024 Results & Data Vital Signs (Past 12 Hours) Vital Signs Temp Pulse Resp BP 04/15/24 08:26 37.0 C 16 04/15/24 08:20 83 111/69
[2024-04-15 10:51] LABS: Hemoglobin 12.1 g/dl (12.0-16.0); Mean Corpuscular Hemoglobin 30.1 pg (25.0-34.0); Mean Corpuscular Hgb Conc 34.6 g/dL (32.0-36.0); Mean Corpuscular Volume 87.1 fL (80.0-100.0); Mean Platelet Volume 10.5 fL (9.4-12.4); Platelet Count 178 K/uL (130-400); RDW Coefficient of Variation 14.1 % (11.5-14.5); RDW Standard Deviation 44.4 fL (36.4-46.3); Red Blood Count 4.02 M/uL (4.20-5.40); White Blood Count 11.43 K/ul (4.8-10.8)
--- NOTE | 2024-04-15 14:33 | Obstetrical Progress Note ---
Date of Service April 15, 2024 Assessment & Plan (1) Obesity affecting in third trimester: Plan: Pt doing well FHR; CAT! Ctx; 2-3 VE by Nurse 3cm [id number] Plan Pitocin augmentation Admission and Anticipated Discharge Date Admission Date: April 15, 2024 Results & Data Vital Signs (Past 12 Hours) Vital Signs Temp Pulse Resp BP 04/15/24 11:11 16 04/15/24 11:11 36.8 C 16 04/15/24 11:11 59 L 04/15/24 11:11 105/58 L 04/15/24 08:26 37.0 C 16 04/15/24 08:20 83 111/69
[2024-04-15] MEDS: OXYTOCIN 30 UNITS/NSS 30 UNITS/500 ML BAG IV PRN (15:01)
[2024-04-15] MEDS: LACTATED RINGER'S 1,000 ML IV SCH (15:01)
[2024-04-15] MEDS ORDERED: BUPIVACAINE 0.25% PF 30 ML VIAL EPI PRN (20:05)
[2024-04-15] MEDS ORDERED: NALBUPHINE HCL INJ 10 MG/ML AMP IV PRN (20:05)
[2024-04-15] MEDS ORDERED: diphenhydrAMINE 50 MG/ML VIAL IV PRN (20:05)
[2024-04-15] MEDS ORDERED: ePHEDrine sulfate 50 MG/ML AMP IV PRN (20:05)
[2024-04-15] MEDS ORDERED: fentANYL 2 MCG/ML BUPIVacaine 0.125%-NSS 100ML BAG EPI PRN (20:05)
[2024-04-15] MEDS ORDERED: ONDANSETRON INJ 2 MG/ML 2 ML VIAL IV PRN (20:05)
[2024-04-15] MEDS ORDERED: NALOXONE HCL 1 MG in SODIUM CHLORIDE 0.9% 1,000 ML IV PRN (20:05)
[2024-04-15] MEDS ORDERED: NALOXONE HCL 0.4 MG/1 ML VIAL/CARP IV PRN (20:05)
[2024-04-15] MEDS ORDERED: PROMETHAZINE 6.25 MG/50.25 ML BAG IV PRN (20:05)
[2024-04-15] MEDS ORDERED: fentaNYL citrate PF 100 MCG/2 ML VIAL EPI PRN (20:05)
[2024-04-15] MEDS ORDERED: ROPIVACAINE 0.5% PF 5 MG/ML 20 ML VIAL EPI PRN (20:05)
[2024-04-15] MEDS ORDERED: LIDOCAINE 2% MPF LOCAL 5 ML VIAL EPI PRN (20:05)
[2024-04-15] MEDS ORDERED: SODIUM CHLORIDE 0.9% PF INJ 10 ML VIAL EPI PRN (20:05)
--- NOTE | 2024-04-15 20:05 | Anesthesiology Consultation ---
Date of Service April 15, 2024 Assessment & Plan Chart Review Chart Review: Patient NOT seen in Pre Admission Testing and Acceptable Risk for Labor Epidural Consults Requested none ASA ASA2 Proposed Anesthesia Anesthesia Type: Labor Epidural Risk / Benefits Reviewed With: PT / POA / Parent / Guardian, Accepts Plan and Informed Consent Obtained History Height/Weight Height: 5 ft 3 in Weight: 131 kg Allergies Allergy/AdvReac Type Severity Reaction Status Date / Time lamotrigine Allergy Intermediate RASH Verified 03/11/24 11:20 Medications Home Medications Medication Instructions Recorded Confirmed Last Taken vit no.95-ferrous 1 tab PO DAILY 10/28/23 04/15/24 1 Day Ago fumarate 28 mg-folic acid 800 mcg ~04/14/24 tablet () Active Medications Generic Name Dose Route Start Last Admin Trade Name Freq PRN Reason Stop Dose Admin Oxytocin 30 units in 500 mls @ 14 mls/hr 04/15/24 14:30 04/15/24 18:30 Pitocin 30 Units/Nss IV 04/17/24 14:29 0.84 units/hr .Q24H PRN 14 mls/hr Labor Induction/Augmentation Titration Protocol 0.84 UNITS/HR Lactated Ringer's 1,000 mls @ 50 mls/hr 04/15/24 15:15 04/15/24 15:01 Lr IV 04/16/24 15:14 50 mls/hr .Q20H SYLVESTER Administration Misoprostol 50 mcg 04/15/24 12:00 04/15/24 10:10 Misoprostol 50 Mcg Tab PO 05/15/24 11:59 50 mcg Q4 SYLVESTER Administration Past Medical History Medical History (Updated 04/15/24 @ 10:29 by Miguel Palmer MD) Heart murmur Depression Anxiety Injury of left little finger age 17 Exercise / Class Metabolic Activity II 4-5 Yardwork/Stairs/Walk up hill Past Surgical History Surgical History (Updated 04/08/24 @ 18:06 by Sherri Victoria RN) [place] teeth extracted Past Anesthesia History No Hx of Anesthesia Complications and No Family Hx of Anesthesia Complications History of PONV No Hx of PONV and No Hx of Motion Sickness Social History Smoking Status: Light tobacco smoker Hx Alcohol Use: No Hx Substance Use: No substance use type: does not use Physical Exam Vital Signs Last Vital Signs Temp 36.7 C 04/15/24 19:09 Pulse 69 04/15/24 19:02 Resp 18 04/15/24 19:09 BP 115/62 04/15/24 19:02 ENMT Mouth: no dentition abnormality Thyromental Distance: > or= 3.5 Finger Breadths Mallampati Class: II Neck normal visual inspection Respiratory normal respiratory effort Auscultation: lungs clear to auscultation bilaterally Cardiovascular Rate/Rhythm: regular rate and regular rhythm Psychiatric Orientation: alert Testing Laboratory Results 04/15/24 10:20 Blood Type Cancelled 04/15/24 14:10 Antibody Screen Cancelled 04/15/24 14:10
[2024-04-15] MEDS: fentANYL 2 MCG/ML BUPIVacaine 0.125%-NSS 100ML BAG ONE (20:26)
[2024-04-15] MEDS: BUPIVACAINE 0.25% PF 30 ML VIAL ONE (20:26)
[2024-04-15] MEDS: LIDOCAINE 2%/EPINEPHRINE 1:200,000 20 ML PF ONE (20:26)
[2024-04-15] MEDS: SODIUM CHLORIDE 0.9% PF INJ 10 ML VIAL ONE (20:26)
--- NOTE | 2024-04-15 21:08 | Obstetrical Progress Note ---
Date of Service April 15, 2024 Assessment & Plan (1) Obesity affecting in third trimester: Plan: Pt doing well FHR: CAT1 On Pit. Ctx 2-4 VE: 4/50/-2, AROM by Dr Garcia- Clear fluid Continue with labor augmentation Admission and Anticipated Discharge Date Admission Date: April 15, 2024 Results & Data Vital Signs (Past 12 Hours) Vital Signs Temp Pulse Resp BP Pulse Ox 04/15/24 20:58 90 04/15/24 20:58 86 04/15/24 20:57 94 04/15/24 20:57 89 04/15/24 20:52 98 04/15/24 20:52 62 04/15/24 20:47 97 04/15/24 20:47 61 04/15/24 20:42 98 04/15/24 20:42 72 04/15/24 20:37 100 04/15/24 20:37 87 04/15/24 20:36 55 L 04/15/24 20:36 106/61 04/15/24 20:34 77 04/15/24 20:34 104/57 L 04/15/24 20:32 98 04/15/24 20:32 72 04/15/24 20:32 113/58 L 04/15/24 20:30 66 04/15/24 20:30 119/71 04/15/24 20:28 65 04/15/24 20:28 115/77 04/15/24 20:27 99 04/15/24 20:27 68 04/15/24 20:25 70 04/15/24 20:25 131/84 04/15/24 20:22 99 04/15/24 20:22 89 04/15/24 20:17 100 04/15/24 20:17 71 04/15/24 19:09 36.7 C 18 04/15/24 19:02 69 04/15/24 19:02 115/62 04/15/24 17:54 64 04/15/24 17:54 113/68 04/15/24 16:59 71 04/15/24 16:59 120/75 04/15/24 16:05 59 L 04/15/24 16:05 97/56 L 04/15/24 16:04 63 04/15/24 16:04 92/59 L 04/15/24 15:03 18 04/15/24 15:03 37.1 C 18 04/15/24 15:03 58 L 04/15/24 15:03 100/57 L 04/15/24 11:11 16 04/15/24 11:11 36.8 C 16 04/15/24 11:11 59 L 04/15/24 11:11 105/58 L
[2024-04-15 23:59] VITALS: O2SAT 98
[2024-04-16] MEDS: METHYLERGONOVINE MALEATE 0.2 MG/ML AMP IM ONE (00:13)
[2024-04-16] MEDS: LIDOCAINE 1% LOCAL 20 ML VIAL INFIL PRN (00:21)
[2024-04-16] MEDS ORDERED: ACETAMINOPHEN 325 MG TAB PO PRN (00:34)
[2024-04-16] MEDS ORDERED: BENZOCAINE 20% SPRY 85 APPLN/85 GM CAN EXT PRN (00:34)
[2024-04-16] MEDS ORDERED: bisacodyL 10 MG SUPP PR PRN (00:34)
[2024-04-16] MEDS ORDERED: OXYTOCIN 30 UNITS/NSS 30 UNITS/500 ML BAG IV PRN (00:34)
[2024-04-16] MEDS ORDERED: HYDROCORTISONE ACETATE 25 MG SUPP PR PRN (00:34)
--- NOTE | 2024-04-16 00:39 | Delivery Summary ---
Vaginal Delivery Summary Date of Service April 16, 2024 Vaginal Delivery Summary DELIVERY NOTE Patient delivered a live male in left occiput presentation there was 1 nuchal cord which was easily reduced. Infant was delivered and placed on mother's abdomen. Delayed cord clamping was performed. Cord blood is obtained Cord gasses are not obtained terminal Meconium was present Placenta is spontaneously delivered. Placenta appears grossly normal and has 3 vessel cord Inspection of the perineum showed a second-degree midline laceration. Laceration is repaired in layers with 2-0 Vicryl in layers Rectal exam post repair showed good sphincter tone no sutures palpated in the rectum. Quantitative blood loss is 520 cc per Infants weight and scores are in the pediatric record Mother and baby are stable in in the recovery
[2024-04-16] MEDS: ePHEDrine sulfate 50 MG/ML AMP ONE (00:52)
[2024-04-16] MEDS: fentaNYL citrate PF 100 MCG/2 ML VIAL ONE (00:52)
[2024-04-16] MEDS: fentaNYL citrate PF 100 MCG/2 ML VIAL EPI STA (00:53)
[2024-04-16] MEDS: BUPIVACAINE 0.25% PF 30 ML VIAL EPI STA (00:53)
[2024-04-16] MEDS: SODIUM CHLORIDE 0.9% PF INJ 10 ML VIAL EPI STA (00:54)
[2024-04-16] MEDS: miSOPROStoL 200 MCG TAB PR ONE (01:23)
[2024-04-16] MEDS: LIDOCAINE 2%/EPINEPHRINE 1:200,000 20 ML PF EPI STA (01:36)
[2024-04-16] MEDS ORDERED: SODIUM CHLORIDE 0.9% 50 ML IV PRN (01:57)
[2024-04-16] MEDS ORDERED: SODIUM CHLORIDE 0.9% 100 ML IV PRN (01:57)
[2024-04-16] MEDS: DIPHTHER/TETAN/PERTUS Vaccine (Tdap, Adol/Adult) 0.5mL IM ONE (04:10)
[2024-04-16] MEDS: miSOPROStoL 50 MCG TAB PO ONE (04:18)
[2024-04-16] MEDS: DOCUSATE SODIUM 100 MG CAP PO SCH (07:37)
[2024-04-16] MEDS: IBUPROFEN 600 MG TAB PO PRN (07:37)
[2024-04-16] MEDS: PRENATAL VITAMIN 1 TAB PO SCH (07:37)
--- NOTE | 2024-04-16 07:55 | Anesthesia Procedure Note ---
Date of Service April 16, 2024 Anesthesia Post Epidural Note Vital Signs Vital Signs: Temp Pulse Resp BP Pulse Ox O2 Del Method 36.8 C 66 20 102/68 98 Room Air 04/16/24 07:37 04/16/24 07:37 04/16/24 07:37 04/16/24 07:37 04/16/24 07:37 04/16/24 07:37 Notes Mental Status: alert / awake / arousable Nausea / Vomiting: adequately controlled Pain: adequately controlled Airway Patency, RR, SpO2: stable & adequate BP & HR: stable & adequate Hydration State: stable & adequate Neuraxial Anesthesia: was administered and sensory block is resolving Anesthetic Complications: no major complications apparent and Pt Satisfied with anesthetic care Epidural: Removed without complications and With tip intact
--- NOTE | 2024-04-16 11:49 | Obstetrical Progress Note ---
Date of Service April 16, 2024 Assessment & Plan Admission and Anticipated Discharge Date Admission Date: April 15, 2024 OB Progress Note abdomen soft and non tender ambulating well no calf tenderness vaginal bleeding scant hgb 12.1 Results & Data Vital Signs (Past 12 Hours) Vital Signs Temp Pulse Pulse Pulse Resp BP BP 04/16/24 07:37 36.8 C 66 20 102/68 04/16/24 02:56 36.9 C 66 18 109/72 04/16/24 02:46 76 107/56 L 04/16/24 02:30 18 04/16/24 02:28 81 129/85 04/16/24 02:12 82 95/51 L 04/16/24 02:00 18 04/16/24 01:57 88 102/63 04/16/24 01:42 83 104/65 04/16/24 01:30 18 04/16/24 01:27 73 95/54 L 04/16/24 01:15 18 04/16/24 01:12 80 109/66 04/16/24 01:00 18 04/16/24 00:56 71 110/58 L 04/16/24 00:45 18 04/16/24 00:41 80 103/57 L 04/16/24 00:30 37.1 C 18 04/16/24 00:27 84 105/58 L 04/16/24 00:13 73 128/62 04/15/24 23:57 04/15/24 23:57 83 04/15/24 23:52 04/15/24 23:52 118 H Pulse Ox O2 Del Method 04/16/24 07:37 98 Room Air 04/16/24 02:56 98 Room Air 04/16/24 02:46 04/16/24 02:30 04/16/24 02:28 04/16/24 02:12 04/16/24 02:00 04/16/24 01:57 04/16/24 01:42 04/16/24 01:30 04/16/24 01:27 04/16/24 01:15 04/16/24 01:12 04/16/24 01:00 04/16/24 00:56 04/16/24 00:45 04/16/24 00:41 04/16/24 00:30 04/16/24 00:27 04/16/24 00:13 04/15/24 23:57 98 04/15/24 23:57 04/15/24 23:52 99 04/15/24 23:52
[2024-04-16 19:29] VITALS: RESP 18
[2024-04-17 00:49] VITALS: TEMP 97.5
[2024-04-17 06:20] LABS: Hematocrit (blood only) 30.9 % (37.0-47.0); Hemoglobin 10.3 g/dl (12.0-16.0); Mean Corpuscular Hemoglobin 29.9 pg (25.0-34.0); Mean Corpuscular Hgb Conc 33.3 g/dL (32.0-36.0); Mean Corpuscular Volume 89.6 fL (80.0-100.0); Mean Platelet Volume 10.9 fL (9.4-12.4); Platelet Count 143 K/uL (130-400); RDW Coefficient of Variation 14.4 % (11.5-14.5); Red Blood Count 3.45 M/uL (4.20-5.40); White Blood Count 10.34 K/ul (4.8-10.8)
[2024-04-17 08:44] VITALS: BP 108/70; PULSE 65
--- NOTE | 2024-04-17 08:44 | Obstetrical Progress Note ---
Date of Service April 17, 2024 Assessment & Plan Admission and Anticipated Discharge Date Admission Date: April 15, 2024 Subjective Patient is seen and examined. She feels well, no complaints. Ambulating without dizziness Voiding without difficulty Tolerating regular diet with out N&V Bleeding is minimal No fever/ chills/ CP/ SOB/ N&V/ Leg pain Bottle feeding without problems Vital Signs Temp Pulse Resp BP Pulse Ox O2 Del Method 04/17/24 07:15 36.4 C L 65 18 108/70 98 Room Air 04/17/24 00:10 36.4 C L 60 18 93/58 L 04/16/24 19:27 36.6 C 64 18 118/63 04/16/24 15:14 36.7 C 73 16 100/64 Room Air 04/16/24 11:30 36.7 C 71 16 103/69 98 Room Air Lab Results 04/15/24 04/15/24 04/17/24 Range/Units 10:20 14:10 05:44 WBC 11.43 H 10.34 (4.8-10.8) K/ul RBC 4.02 L 3.45 L (4.20-5.40) M/uL Hgb 12.1 10.3 L (12.0-16.0) g/dl Hct 35.0 L 30.9 L (37.0-47.0) % MCV 87.1 89.6 (80.0-100.0) fL MCH 30.1 29.9 (25.0-34.0) pg MCHC 34.6 33.3 (32.0-36.0) g/dL RDW Std Deviation 44.4 46.0 (36.4-46.3) fL RDW Coeff of [place] 14.1 14.4 (11.5-14.5) % Plt Count 178 143 (130-400) K/uL MPV 10.5 10.9 (9.4-12.4) fL Treponema pallidum Ab Negative (Negative) Blood Type A Positive Cancelled Antibody Screen NEGATIVE Cancelled Crossmatch See Detail PE: General: Alert, orientedx3, NAD Abd: soft, NT, fundus firm, below Umbilicus Perineum intact, Lochia rubra minimal Ext; NT, no edema AP: 28 yo s/p , ppd# 2 VSS Afebrile doing well Continue routine care All questions were answered D/C home , f/u in office Results & Data Vital Signs (Past 12 Hours) Vital Signs Temp Pulse Resp BP Pulse Ox O2 Del Method 04/17/24 07:15 36.4 C L 65 18 108/70 98 Room Air 04/17/24 00:10 36.4 C L 60 18 93/58 L
[2024-04-17] MEDS ORDERED: bisacodyL 5 MG TABEC PO SCH (20:00)
== END 2024-04-17 10:15 | disposition home health service (06) | DRG 807 ==
LOC: 4S1 07:57 → 4E2 04-16 03:13